=== PATIENT | male | born 1950 | race Caucasian/White ===

== ENCOUNTER 2016-06-23 07:43 | Emergency (ER) | payer MEDICARE ==
[~2016-06-23] VITALS: Ht 172.7 cm; Wt 80.0 kg
[2016-06-23] MEDS ORDERED: ONDANSETRON 2MG/ML, 2ML IVPush ONE (08:00)
[2016-06-23] MEDS ORDERED: SODIUM CHLORIDE 0.9% 1,000ML IVBOLUS ONE (08:00)
[2016-06-23] MEDS ORDERED: SODIUM CHLORIDE 0.9% 1,000 ML IV ONE (08:00)
[2016-06-23] MEDS ORDERED: FAMOTIDINE 20 MG/2 ML IVP ONE (08:00)
[2016-06-23] MEDS ORDERED: MAALOX/HYOSCYAMINE/LIDOCAINE 45 ML BOTTLE PO ONE (08:00)
[2016-06-23] MEDS ORDERED: MORPHINE SULFATE 4 MG/ML, 1ML IVPush PRN (08:00)
[2016-06-23] MEDS ORDERED: MAALOX/HYOSCYAMINE/LIDOCAINE 45 ML BOTTLE ONE (08:15)
[2016-06-23] MEDS ORDERED: ONDANSETRON 2MG/ML, 2ML ONE (08:15)
[2016-06-23] MEDS ORDERED: MORPHINE SULFATE 4 MG/ML, 1ML ONE (08:15)
[2016-06-23] MEDS ORDERED: FAMOTIDINE 20 MG/2 ML ONE (08:16)
[2016-06-23 08:30] LABS: HEMOGLOBIN 16.4 g/dL (13.7-18.0)
[2016-06-23 08:41] LABS: BLOOD UREA NITROGEN 13 mg/dL (7-18)
[2016-06-23 08:42] LABS: ASPARTATE AMINO TRANSFERASE 14 U/L (15-37)
[2016-06-23] MEDS ORDERED: OXYB5TAB7 PO (08:57)
[2016-06-23] MEDS ORDERED: ATOR10TA9 PO (08:57)
[2016-06-23] MEDS ORDERED: LAMO25TA5 PO (08:57)
[2016-06-23] MEDS ORDERED: ARIP2TAB PO (08:57)
[2016-06-23] MEDS ORDERED: METO25TA35 PO (08:57)
[2016-06-23] MEDS ORDERED: PANT20TA2 PO (08:57)
[2016-06-23 09:08] VITALS: BP 112/69
== END 2016-06-23 10:46 | disposition home or self-care (01) ==
LOC: ED 10:40
DX: K52.9 Noninfective gastroenteritis and colitis, unspecified (principal); D72.829 Elevated white blood cell count, unspecified; F10.10 Alcohol abuse, uncomplicated; K21.9 Gastro-esophageal reflux disease without esophagitis; I10 Essential (primary) hypertension; F17.200 Nicotine dependence, unspecified, uncomplicated
CPT/HCPCS: 36415; 74022; 80053; 83690; 85025; 93005; 96361; 96374; 96375; 99285; J2405; J7030; S0028

== ENCOUNTER 2016-07-23 12:38 | Emergency (ER) | payer MEDICARE ==
[~2016-07-23] VITALS: Ht 177.8 cm; Wt 90.0 kg
[~2016-07-23 12:38] MED LIST: ARIP2TAB PO; ATOR10TA9 PO; LAMO25TA5 PO; METO25TA35 PO; OXYB5TAB7 PO; PANT20TA2 PO
[2016-07-23] MEDS ORDERED: SODIUM CHLORIDE 0.9% 1,000 ML IV ONE (13:11)
[2016-07-23] MEDS ORDERED: ALBUTEROL/IPRATROPIUM 2.5MG/0.5MG, 3 ML NPPB SCH (13:30)
[2016-07-23] MEDS ORDERED: SODIUM CHLORIDE 0.9% 1,000ML IVBOLUS ONE (13:30)
[2016-07-23] MEDS ORDERED: SODIUM CHLORIDE FLUSH 10ML SYR IVF ONE (13:30)
[2016-07-23 13:40] LABS: BLOOD UREA NITROGEN 15 mg/dL (7-18)
[2016-07-23 13:45] LABS: IS PT STATUS REG ER OR PRE ER? YES
[2016-07-23 15:28] VITALS: BP 121/74
== END 2016-07-23 15:30 | disposition home or self-care (01) ==
LOC: ED 15:00
DX: J44.1 Chronic obstructive pulmonary disease with (acute) exacerbation (principal); R06.00 Dyspnea, unspecified; I10 Essential (primary) hypertension; I25.2 Old myocardial infarction
CPT/HCPCS: 36415; 71010; 80048; 82040; 83880; 84484; 85025; 93005; 94640; 96360; 96361; 99285; J7030; J7512; J7620

== ENCOUNTER 2016-07-25 14:08 | Emergency (ER) | payer MEDICARE ==
[~2016-07-25] VITALS: Ht 177.8 cm; Wt 94.0 kg
[2016-07-25 14:52] VITALS: BP 127/78
== END 2016-07-25 16:35 | disposition home or self-care (01) ==
LOC: ED 14:45
DX: J44.1 Chronic obstructive pulmonary disease with (acute) exacerbation (principal); K21.9 Gastro-esophageal reflux disease without esophagitis; I10 Essential (primary) hypertension; I25.2 Old myocardial infarction
CPT/HCPCS: 93005; 99283; J7512